=== PATIENT | male | born 1950 | race Caucasian/White ===

== ENCOUNTER 2017-05-06 14:15 | Outpatient (CLI) | payer MEDICARE ==
--- NOTE | 2017-05-06 17:09 | RAD ---
LUMBAR SPINE THREE VIEWS: 05/06/17 HISTORY: 66-year-old male with left flank pain. FINDINGS: Generalized spondylosis with disc osteophytosis and facet arthrosis. 0.7 cm anterolisthesis of L4 on L5. No evidence for acute compression fracture or focal bone lesion. IMPRESSION: Lumbar spondylosis, particularly of the lower lumbar levels with 0.7 cm anterolisthesis of L4 on L5. No acute fracture. POS: FLO
== END 2017-05-06 14:16 | disposition home or self-care (01) ==
LOC: RAD-FRANK 14:15
PROVIDERS: ATTEND Nurse Practitioner Family
DX: R10.9 Unspecified abdominal pain (principal); M47.816 Spondylosis without myelopathy or radiculopathy, lumbar region
CPT/HCPCS: 72100

== ENCOUNTER 2023-08-11 17:23 | Emergency (ER) | payer MEDICARE, OTHER ==
[2023-08-11] MEDS ORDERED: methylPREDNISolone Sod Succ/PF 125 MG/2 ML VIAL ONE (17:43)
[2023-08-11] MEDS ORDERED: Magnesium 2 GM/50 ML BAG (IN WATER) ONE (17:43)
[2023-08-11 17:48] LABS: #Basophils 0.1 thou/uL (0.0-0.2); #Monocytes 0.8 thou/uL (0.11-0.59); #Neutrophils 5.3 thou/uL (1.40-6.50); %Basophils 1.3 % (0.0-1.0); %Eosinophils 11.3 % (0.0-10.0); %Lymphocytes 20.8 % (21.0-51.0); %Monocytes 8.5 % (0.0-10.0); %Neutrophils 57.9 % (42.0-75.0); Hematocrit 52.5 % (42.0-52.0); Hemoglobin 17.3 g/dL (14.0-18.0); Mean Platelet Volume 9.6 fL (7.4-10.4); Platelet Count 272 10x3/uL (130-400); RBC Distribution Width 14.4 % (11.5-14.5); Red Blood Cell (RBC) Count 5.41 mill/uL (4.70-6.10); White Blood Cell (WBC) Count 9.2 10x3/uL (4.8-10.8)
[2023-08-11] MEDS ORDERED: Ipratropium/Albuterol 3 ML NEB ONE ×2 (17:49→19:16)
[2023-08-11] MEDS ORDERED: Albuterol 2.5 MG (0.5 mL) NEB ONE (17:50)
[2023-08-11 18:17] LABS: Troponin I Less than 0.010 ng/mL (< 0.028)
[2023-08-11 18:41] LABS: ALT (SGPT) 19 U/L (8-55); AST (SGOT) 25 U/L (5-34); Albumin 4.3 g/dL (3.4-4.8); Alkaline Phosphatase 90 U/L (40-110); Anion Gap 16 mmol/L (10-20); BUN (Urea Nitrogen) 14 mg/dL (8.4-25.7); Bilirubin, Total 0.6 mg/dL (0.2-1.2); Calc. Creatinine Clearance 0 mL/min (70-130); Carbon Dioxide 25 mmol/L (23-31); Chloride 103 mmol/L (98-107); Estimated GFR 64; Globulin 3.7 g/dL (2.4-3.5); Glucose 97 mg/dL (80-115); Potassium 5.1 mmol/L (3.5-5.1); Sodium 139 mmol/L (136-145)
[2023-08-11] MEDS ORDERED: Albuterol 2.5 MG (3 mL) NEB ONE (19:15)
== END 2023-08-11 20:40 | disposition home or self-care (01) ==
LOC: ERS 17:23
DX: J98.01 Acute bronchospasm (principal); J44.1 Chronic obstructive pulmonary disease with (acute) exacerbation; F17.210 Nicotine dependence, cigarettes, uncomplicated; Z79.51 Long term (current) use of inhaled steroids
CPT/HCPCS: 71045; 80053; 83880; 84484; 85025; 93005; 94640; 96365; 96375; J2930; J3475; J7611; J7620